=== PATIENT | male | born 1975 | race Caucasian/White ===

== ENCOUNTER 2023-02-11 01:21 | Emergency (ER) | payer BC, OTHER ==
[~2023-02-11] VITALS: Ht 172.7 cm; Wt 91.0 kg
[2023-02-11 01:40] VITALS: BP 125/71; PULSE 56; RESP 18; TEMP 97.8; O2SAT 98
== END 2023-02-11 02:53 | disposition left against medical advice (07) ==
LOC: ER 01:21
DX: Z53.21 Procedure and treatment not carried out due to patient leaving prior to being seen by health care provider (principal)
CPT/HCPCS: 71045; 93005; 99281